=== PATIENT | female | born 1995 | race Caucasian/White ===

== ENCOUNTER 2021-10-12 12:19 | Inpatient (IN) | payer MEDICAID, OTHER ==
[~2021-10-12] VITALS: Ht 154.9 cm; Wt 46.3 kg
[2021-10-12 16:54] LABS: COVID AG,FIA SOURCE NASOPHARYNGEAL
[2021-10-12] MEDS ORDERED: LORazepam 2 MG TABLET PO PRN (17:15)
[2021-10-12] MEDS ORDERED: OLANZapine 5 MG RAPDIS TABLET PO PRN (17:15)
[2021-10-12] MEDS ORDERED: ZOLPIDEM TARTRATE 10 MG TABLET PO PRN (17:15)
[2021-10-12 20:09] VITALS: BP 121/74
[2021-10-13 04:04] VITALS: BP 120/80
[2021-10-13 08:44] VITALS: BP 105/70
[2021-10-13] MEDS ORDERED: GuaiFENesin/D-METHORPHAN [SUGAR-FREE] 200-20MG/10 ML SYRUP UDCUP PO PRN (15:45)
[2021-10-13] MEDS ORDERED: HydrOXYzine PAMOATE 50 MG CAPSULE PO PRN (15:45)
[2021-10-13] MEDS ORDERED: LOPERAMIDE HCL 2 MG CAPSULE PO PRN (15:45)
[2021-10-13] MEDS ORDERED: MAG HYDROX/AL HYDROX/SIMETH ES 30 ML SUSPENSION UDCUP PO PRN (15:45)
[2021-10-13] MEDS ORDERED: TUBERCULIN, PURIFIED PROTEIN DERIVATIVE 5 TU/0.1 ML SYRINGE ID ONE (15:45)
[2021-10-13] MEDS ORDERED: ACETAMINOPHEN 325 MG TABLET PO PRN (15:45)
[2021-10-13] MEDS ORDERED: MAGNESIUM HYDROXIDE SUSPENSION 30 ML UDCUP PO PRN (15:45)
[2021-10-13] MEDS ORDERED: PROMETHAZINE HCL 25 MG TABLET PO PRN (15:45)
[2021-10-13 16:21] VITALS: BP 105/71
[2021-10-13] MEDS: THIAMINE 100 MG TABLET PO SCH ×2 (16:45→16:56)
[2021-10-13] MEDS: MELATONIN 5 MG TABLET PO SCH (20:29)
[2021-10-13] MEDS ORDERED: OLANZapine 10 MG RAPDIS TABLET PO SCH (21:00)
[2021-10-14 01:11] VITALS: BP 90/65
[2021-10-14] MEDS: THIAMINE 100 MG TABLET PO SCH ×2 (08:25→16:19)
[2021-10-14] MEDS: NALTREXONE HCL 50 MG TABLET PO SCH (08:25)
[2021-10-14] MEDS: OMEGA-3/DHA/EPA/FISH OIL 1,000 MG CAPSULE PO SCH (08:25)
[2021-10-14] MEDS: MULTIVITAMINS WITH MINERALS, THERAPEUTIC TABLET PO SCH (08:25)
[2021-10-14] MEDS: FOLIC ACID 1 MG TABLET PO SCH (08:25)
[2021-10-14 16:00] VITALS: BP 100/63
[2021-10-14] MEDS: MELATONIN 5 MG TABLET PO SCH (20:44)
[2021-10-14] MEDS ORDERED: OLANZapine 10 MG RAPDIS TABLET PO SCH (21:00)
[2021-10-15] MEDS: OMEGA-3/DHA/EPA/FISH OIL 1,000 MG CAPSULE PO SCH (09:00)
[2021-10-15] MEDS: MULTIVITAMINS WITH MINERALS, THERAPEUTIC TABLET PO SCH (09:00)
[2021-10-15] MEDS: THIAMINE 100 MG TABLET PO SCH ×2 (09:00→16:52)
[2021-10-15] MEDS: NALTREXONE HCL 50 MG TABLET PO SCH (09:00)
[2021-10-15] MEDS: FOLIC ACID 1 MG TABLET PO SCH (09:00)
[2021-10-15 16:00] VITALS: BP 132/84
[2021-10-15] MEDS: MELATONIN 5 MG TABLET PO SCH (21:17)
[2021-10-15] MEDS: OLANZapine 10 MG RAPDIS TABLET PO SCH (21:18)
[2021-10-16 09:36] VITALS: BP 96/63
[2021-10-16] MEDS: NALTREXONE HCL 50 MG TABLET PO SCH (10:09)
[2021-10-16] MEDS: THIAMINE 100 MG TABLET PO SCH ×2 (10:09→16:05)
[2021-10-16] MEDS: MULTIVITAMINS WITH MINERALS, THERAPEUTIC TABLET PO SCH (10:09)
[2021-10-16] MEDS: FOLIC ACID 1 MG TABLET PO SCH (10:09)
[2021-10-16] MEDS: OMEGA-3/DHA/EPA/FISH OIL 1,000 MG CAPSULE PO SCH (10:09)
[2021-10-16 17:21] VITALS: BP 111/77
[2021-10-16] MEDS: MELATONIN 5 MG TABLET PO SCH (20:12)
[2021-10-16] MEDS: OLANZapine 10 MG RAPDIS TABLET PO SCH (20:12)
[2021-10-17 08:00] VITALS: BP 100/59
[2021-10-17] MEDS: MULTIVITAMINS WITH MINERALS, THERAPEUTIC TABLET PO SCH (09:00)
[2021-10-17] MEDS: NALTREXONE HCL 50 MG TABLET PO SCH (09:00)
[2021-10-17] MEDS: OMEGA-3/DHA/EPA/FISH OIL 1,000 MG CAPSULE PO SCH (09:00)
[2021-10-17] MEDS: FOLIC ACID 1 MG TABLET PO SCH (09:00)
[2021-10-17] MEDS: THIAMINE 100 MG TABLET PO SCH ×2 (09:00→17:09)
[2021-10-17 16:00] VITALS: BP 107/71
[2021-10-17] MEDS: MELATONIN 5 MG TABLET PO SCH (20:43)
[2021-10-17] MEDS: OLANZapine 10 MG RAPDIS TABLET PO SCH (20:43)
[2021-10-18 08:00] VITALS: BP 113/64
[2021-10-18] MEDS: MULTIVITAMINS WITH MINERALS, THERAPEUTIC TABLET PO SCH (09:30)
[2021-10-18] MEDS: FOLIC ACID 1 MG TABLET PO SCH (09:30)
[2021-10-18] MEDS: THIAMINE 100 MG TABLET PO SCH ×2 (09:30→16:56)
[2021-10-18] MEDS: OMEGA-3/DHA/EPA/FISH OIL 1,000 MG CAPSULE PO SCH (09:30)
[2021-10-18] MEDS: NALTREXONE HCL 50 MG TABLET PO SCH (09:30)
[2021-10-18 14:32] LABS: COVID AG,FIA SOURCE NASOPHARYNGEAL
[2021-10-18 16:34] VITALS: BP 129/73
[2021-10-18] MEDS: MELATONIN 5 MG TABLET PO SCH (20:34)
[2021-10-18] MEDS: OLANZapine 10 MG RAPDIS TABLET PO SCH (20:34)
[2021-10-19] MEDS: MULTIVITAMINS WITH MINERALS, THERAPEUTIC TABLET PO SCH (09:32)
[2021-10-19] MEDS: FOLIC ACID 1 MG TABLET PO SCH (09:33)
[2021-10-19] MEDS: THIAMINE 100 MG TABLET PO SCH ×2 (09:33→16:14)
[2021-10-19] MEDS: OMEGA-3/DHA/EPA/FISH OIL 1,000 MG CAPSULE PO SCH (09:33)
[2021-10-19] MEDS: NALTREXONE HCL 50 MG TABLET PO SCH (09:33)
[2021-10-19 10:00] VITALS: BP 110/61
[2021-10-19] MEDS ORDERED: NALT50TA PO (15:12)
[2021-10-19] MEDS ORDERED: OMEG-108 PO (15:12)
[2021-10-19] MEDS ORDERED: OLAN10TA26 PO (15:12)
[2021-10-19] MEDS ORDERED: MELA5TAB40 PO (15:12)
[2021-10-19 16:15] VITALS: BP 117/82
== END 2021-10-19 16:50 | disposition home or self-care (01) | DRG 750 ==
LOC: EMS 12:24 → 3EI 17:04
PROVIDERS: ADMIT Psychiatry & Neurology Psychiatry; ATTEND Psychiatry & Neurology Psychiatry
DX: F20.0 Paranoid schizophrenia (principal); F39 Unspecified mood [affective] disorder; F06.30 Mood disorder due to known physiological condition, unspecified; Z20.822 Contact with and (suspected) exposure to COVID-19; R41.843 Psychomotor deficit; F32.9 Major depressive disorder, single episode, unspecified; F17.200 Nicotine dependence, unspecified, uncomplicated; Z55.9 Problems related to education and literacy, unspecified; Z91.19 Patient's noncompliance with other medical treatment and regimen; Z59.9 Problem related to housing and economic circumstances, unspecified; Z63.9 Problem related to primary support group, unspecified; Z65.3 Problems related to other legal circumstances
CPT/HCPCS: 99285; Q9967

== ENCOUNTER 2021-12-28 00:47 | Inpatient (IN) | payer MEDICAID, OTHER ==
[~2021-12-28] VITALS: Ht 154.9 cm; Wt 46.7 kg
[~2021-12-28 00:47] MED LIST: MELA5TAB40 PO; NALT50TA PO; OLAN10TA26 PO; OMEG-108 PO
[2021-12-28 01:57] LABS: COVID AG,FIA SOURCE NASAL SWAB
[2021-12-28] MEDS ORDERED: LORazepam 2 MG TABLET PO ONE (02:30)
[2021-12-28] MEDS ORDERED: OLANZapine 5 MG TABLET PO ONE (02:30)
[2021-12-28] MEDS ORDERED: OLANZapine 5 MG RAPDIS TABLET PO PRN (02:30)
[2021-12-28] MEDS ORDERED: ZOLPIDEM TARTRATE 10 MG TABLET PO PRN (02:30)
[2021-12-28] MEDS ORDERED: LORazepam 2 MG TABLET PO PRN (02:30)
[2021-12-28] MEDS ORDERED: HALOPERIDOL LACTATE 5 MG/ML VIAL IM ONE (03:30)
[2021-12-28] MEDS ORDERED: DiphenhydrAMINE HCL 50 MG/ML VIAL IM ONE (03:30)
[2021-12-28] MEDS ORDERED: DIAZEPAM 5 MG/ML 2 ML SYRINGE IM ONE (03:30)
[2021-12-28 04:19] LABS: BASOPHILS % (AUTO) 0.8 % (0.0-2.0); EOSINOPHILS % (AUTO) 0 % (1.0-6.0); HEMATOCRIT 41.6 % (36-46); HEMOGLOBIN 13.9 g/dL (12.0-16.0); LYMPHOCYTES # (AUTO) 1.2 K/uL (1.0-4.8); LYMPHOCYTES % (AUTO) 17.9 % (22.0-44.0); MEAN CORPUSCULAR HEMOGLOBIN 28.2 pg (26.0-34.0); MEAN CORPUSCULAR HGB CONC 33.4 G/dL (31.0-37.0); MEAN CORPUSCULAR VOLUME 84 fL (80-100); MONOCYTES # (AUTO) 0.6 K/uL (0.1-1.0); MONOCYTES % (AUTO) 8.7 % (2.0-9.0); NEUTROPHILS % (AUTO) 72.6 % (40.0-70.0); PLATELET COUNT (AUTO) 300 K/uL (150-450); RED BLOOD CELL COUNT(AUTO) 4.93 MIL/uL (4.00-5.20); RED CELL DISTRIBUTION WIDTH 13.7 % (11.5-14.5)
[2021-12-28 04:28] LABS: ANION GAP 13 mmol/L (8-16); CALCIUM, TOTAL 9.5 mg/dL (8.8-10.5); CARBON DIOXIDE 25 mmol/L (22-29); CHLORIDE 104 mmol/L (98-107); CREATININE 0.77 mg/dL (0.60-1.30); GLUCOSE,RANDOM 112 mg/dL (70-110); POTASSIUM 3.6 mmol/L (3.5-5.1); SODIUM SERUM 142 mmol/L (136-145); UREA NITROGEN, BLOOD 19 mg/dL (7-18)
[2021-12-28 04:29] LABS: GLOMERULAR FILTR. RATE CALC > 60 mL/min (>60)
[2021-12-28 04:34] LABS: ALANINE AMINOTRANSFERASE 26 U/L (12-78); ALBUMIN 4.7 g/dL (3.4-5.0); ALKALINE PHOSPHATASE 64 U/L (46-116); ASPARTATE AMINOTRANSFERASE 23 U/L (15-37); BILIRUBIN,TOTAL 0.6 mg/dL (0.1-1.0); TOTAL PROTEIN, SERUM 8.3 g/dL (6.4-8.2)
[2021-12-28 04:46] VITALS: BP 107/69
[2021-12-28 08:00] VITALS: BP 104/74
[2021-12-28] MEDS ORDERED: GuaiFENesin/D-METHORPHAN [SUGAR-FREE] 200-20MG/10 ML SYRUP UDCUP PO PRN (09:30)
[2021-12-28] MEDS ORDERED: LOPERAMIDE HCL 2 MG CAPSULE PO PRN (09:30)
[2021-12-28] MEDS ORDERED: CloNIDine HCL 0.1 MG TABLET PO PRN (09:30)
[2021-12-28] MEDS ORDERED: DOCUSATE SODIUM 100 MG CAPSULE PO PRN (09:30)
[2021-12-28] MEDS ORDERED: MAGNESIUM HYDROXIDE SUSPENSION 30 ML UDCUP PO PRN (09:30)
[2021-12-28] MEDS ORDERED: ONDANSETRON HCL 4 MG TABLET PO PRN (09:30)
[2021-12-28] MEDS ORDERED: PETROLATUM,WHITE 28 GM JELLY TP PRN (09:30)
[2021-12-28] MEDS ORDERED: ALBUTEROL SULFATE HFA 90 MCG/PUFF 8 GM INHALER IH PRN (09:30)
[2021-12-28] MEDS ORDERED: ACETAMINOPHEN 325 MG TABLET PO PRN (09:30)
[2021-12-28] MEDS ORDERED: MAG HYDROX/AL HYDROX/SIMETH ES 30 ML SUSPENSION UDCUP PO PRN (09:30)
[2021-12-28] MEDS ORDERED: NICOTINE 14 MG/24 HOUR PATCH TD PRN (09:30)
[2021-12-28] MEDS ORDERED: IBUPROFEN 400 MG TABLET PO PRN (09:30)
[2021-12-28] MEDS: OLANZapine 10 MG TABLET PO SCH ×2 (13:47→20:21)
[2021-12-28 16:00] VITALS: BP 141/87
[2021-12-28] MEDS: MELATONIN 5 MG TABLET PO SCH (20:21)
[2021-12-29 06:31] LABS: MAGNESIUM 2.3 mg/dL (1.80-2.40); PHOSPHORUS 5.1 mg/dL (2.5-4.9)
[2021-12-29 08:00] VITALS: BP 118/72
[2021-12-29] MEDS: OMEGA-3/DHA/EPA/FISH OIL 1,000 MG CAPSULE PO SCH (08:39)
[2021-12-29] MEDS: MULTIVITAMINS, THERAPEUTIC TABLET PO SCH (08:39)
[2021-12-29] MEDS: OLANZapine 10 MG TABLET PO SCH ×2 (08:39→21:15)
[2021-12-29] MEDS: THIAMINE 100 MG TABLET PO SCH (08:39)
[2021-12-29 16:00] VITALS: BP 93/54
[2021-12-29] MEDS: MELATONIN 5 MG TABLET PO SCH (21:05)
[2021-12-30] MEDS: OLANZapine 10 MG TABLET PO SCH ×2 (09:03→20:19)
[2021-12-30] MEDS: MULTIVITAMINS, THERAPEUTIC TABLET PO SCH (09:03)
[2021-12-30] MEDS: THIAMINE 100 MG TABLET PO SCH (09:03)
[2021-12-30] MEDS: OMEGA-3/DHA/EPA/FISH OIL 1,000 MG CAPSULE PO SCH (09:03)
[2021-12-30 09:04] VITALS: BP 90/60
[2021-12-30 16:38] VITALS: BP 108/63
[2021-12-30] MEDS: MELATONIN 5 MG TABLET PO SCH (20:19)
[2021-12-31 08:00] VITALS: BP 112/80
[2021-12-31 08:27] VITALS: BP 112/80
[2021-12-31] MEDS: MULTIVITAMINS, THERAPEUTIC TABLET PO SCH (08:32)
[2021-12-31] MEDS: OMEGA-3/DHA/EPA/FISH OIL 1,000 MG CAPSULE PO SCH (08:32)
[2021-12-31] MEDS: OLANZapine 10 MG TABLET PO SCH ×2 (08:32→20:21)
[2021-12-31] MEDS: THIAMINE 100 MG TABLET PO SCH (08:32)
[2021-12-31 16:33] VITALS: BP 104/61
[2021-12-31] MEDS: MELATONIN 5 MG TABLET PO SCH (20:21)
[2022-01-01] MEDS: THIAMINE 100 MG TABLET PO SCH (08:53)
[2022-01-01] MEDS: OLANZapine 10 MG TABLET PO SCH ×2 (08:53→20:47)
[2022-01-01] MEDS: MULTIVITAMINS, THERAPEUTIC TABLET PO SCH (08:53)
[2022-01-01] MEDS: OMEGA-3/DHA/EPA/FISH OIL 1,000 MG CAPSULE PO SCH (08:53)
[2022-01-01 09:01] VITALS: BP 113/71
[2022-01-01 16:43] VITALS: BP 99/69
[2022-01-01] MEDS: MELATONIN 5 MG TABLET PO SCH (20:47)
[2022-01-02 08:34] VITALS: BP 102/65
[2022-01-02] MEDS: OMEGA-3/DHA/EPA/FISH OIL 1,000 MG CAPSULE PO SCH (08:55)
[2022-01-02] MEDS: MULTIVITAMINS, THERAPEUTIC TABLET PO SCH (08:56)
[2022-01-02] MEDS: THIAMINE 100 MG TABLET PO SCH (08:56)
[2022-01-02] MEDS: MEGESTROL ACETATE 40 MG TABLET PO SCH ×2 (08:56→17:11)
[2022-01-02] MEDS: OLANZapine 10 MG TABLET PO SCH ×2 (08:56→21:39)
[2022-01-02 16:00] VITALS: BP 92/58
[2022-01-02] MEDS: MELATONIN 5 MG TABLET PO SCH (21:39)
[2022-01-03 06:44] LABS: COVID AG,FIA SOURCE NASAL SWAB
[2022-01-03 09:31] VITALS: BP 99/62
[2022-01-03] MEDS: MULTIVITAMINS, THERAPEUTIC TABLET PO SCH (10:19)
[2022-01-03] MEDS: THIAMINE 100 MG TABLET PO SCH (10:19)
[2022-01-03] MEDS: OLANZapine 10 MG TABLET PO SCH ×2 (10:19→20:17)
[2022-01-03] MEDS: OMEGA-3/DHA/EPA/FISH OIL 1,000 MG CAPSULE PO SCH (10:19)
[2022-01-03] MEDS: MEGESTROL ACETATE 40 MG TABLET PO SCH ×2 (10:21→16:55)
[2022-01-03 16:25] VITALS: BP 108/69
[2022-01-03] MEDS: MELATONIN 5 MG TABLET PO SCH (20:17)
[2022-01-03 20:52] VITALS: BP 145/55
[2022-01-04] MEDS: OMEGA-3/DHA/EPA/FISH OIL 1,000 MG CAPSULE PO SCH (08:12)
[2022-01-04] MEDS: OLANZapine 10 MG TABLET PO SCH ×2 (08:12→20:58)
[2022-01-04] MEDS: MEGESTROL ACETATE 40 MG TABLET PO SCH ×2 (08:12→16:22)
[2022-01-04] MEDS: MULTIVITAMINS, THERAPEUTIC TABLET PO SCH (08:13)
[2022-01-04] MEDS: THIAMINE 100 MG TABLET PO SCH (08:13)
[2022-01-04 08:29] VITALS: BP 92/62
[2022-01-04] MEDS: VALPROIC ACID 250 MG/5 ML SOLUTION UDCUP PO SCH ×2 (14:12→20:58)
[2022-01-04 16:03] VITALS: BP 94/60
[2022-01-04] MEDS: MELATONIN 5 MG TABLET PO SCH (20:58)
[2022-01-05 08:00] VITALS: BP 95/53
[2022-01-05] MEDS: OLANZapine 10 MG TABLET PO SCH ×2 (09:04→20:00)
[2022-01-05] MEDS: MULTIVITAMINS, THERAPEUTIC TABLET PO SCH (09:04)
[2022-01-05] MEDS: MEGESTROL ACETATE 40 MG TABLET PO SCH ×2 (09:04→16:23)
[2022-01-05] MEDS: THIAMINE 100 MG TABLET PO SCH (09:04)
[2022-01-05] MEDS: OMEGA-3/DHA/EPA/FISH OIL 1,000 MG CAPSULE PO SCH (09:05)
[2022-01-05] MEDS: VALPROIC ACID 250 MG/5 ML SOLUTION UDCUP PO SCH ×2 (09:05→20:00)
[2022-01-05 16:00] VITALS: BP 92/57
[2022-01-05] MEDS: MELATONIN 5 MG TABLET PO SCH (20:00)
[2022-01-06 06:19] VITALS: BP 96/60
[2022-01-06] MEDS: OMEGA-3/DHA/EPA/FISH OIL 1,000 MG CAPSULE PO SCH (09:24)
[2022-01-06] MEDS: OLANZapine 10 MG TABLET PO SCH ×2 (09:24→20:39)
[2022-01-06] MEDS: MULTIVITAMINS, THERAPEUTIC TABLET PO SCH (09:24)
[2022-01-06] MEDS: THIAMINE 100 MG TABLET PO SCH (09:25)
[2022-01-06] MEDS: VALPROIC ACID 250 MG/5 ML SOLUTION UDCUP PO SCH ×2 (09:25→20:39)
[2022-01-06] MEDS: MEGESTROL ACETATE 40 MG TABLET PO SCH ×2 (09:25→17:50)
[2022-01-06 09:43] VITALS: BP 90/61
[2022-01-06 16:06] VITALS: BP 114/71
[2022-01-06] MEDS: MELATONIN 5 MG TABLET PO SCH (20:39)
[2022-01-07] MEDS: THIAMINE 100 MG TABLET PO SCH (09:02)
[2022-01-07] MEDS: OMEGA-3/DHA/EPA/FISH OIL 1,000 MG CAPSULE PO SCH (09:02)
[2022-01-07] MEDS: OLANZapine 10 MG TABLET PO SCH ×2 (09:02→20:15)
[2022-01-07] MEDS: MULTIVITAMINS, THERAPEUTIC TABLET PO SCH (09:02)
[2022-01-07] MEDS: VALPROIC ACID 250 MG/5 ML SOLUTION UDCUP PO SCH ×2 (09:02→20:11)
[2022-01-07] MEDS: MEGESTROL ACETATE 40 MG TABLET PO SCH ×2 (09:02→16:01)
[2022-01-07 09:16] VITALS: BP 90/66
[2022-01-07 16:00] VITALS: BP 99/67
[2022-01-07] MEDS: MELATONIN 5 MG TABLET PO SCH (20:11)
[2022-01-08 08:30] VITALS: BP 96/63
[2022-01-08] MEDS: VALPROIC ACID 250 MG/5 ML SOLUTION UDCUP PO SCH ×2 (09:04→20:12)
[2022-01-08] MEDS: OMEGA-3/DHA/EPA/FISH OIL 1,000 MG CAPSULE PO SCH (09:04)
[2022-01-08] MEDS: MEGESTROL ACETATE 40 MG TABLET PO SCH ×2 (09:05→16:14)
[2022-01-08] MEDS: OLANZapine 10 MG TABLET PO SCH ×2 (09:05→20:12)
[2022-01-08] MEDS: THIAMINE 100 MG TABLET PO SCH (09:05)
[2022-01-08] MEDS: MULTIVITAMINS, THERAPEUTIC TABLET PO SCH (09:05)
[2022-01-08 13:25] LABS: CHOL/HDL RATIO 3.7 (3.9-5.7)
[2022-01-08 16:56] VITALS: BP 115/75
[2022-01-08] MEDS: MELATONIN 5 MG TABLET PO SCH (20:12)
[2022-01-09] MEDS: OLANZapine 10 MG TABLET PO SCH ×2 (08:16→20:50)
[2022-01-09] MEDS: MULTIVITAMINS, THERAPEUTIC TABLET PO SCH (08:16)
[2022-01-09] MEDS: OMEGA-3/DHA/EPA/FISH OIL 1,000 MG CAPSULE PO SCH (08:16)
[2022-01-09] MEDS: THIAMINE 100 MG TABLET PO SCH (08:16)
[2022-01-09] MEDS: MEGESTROL ACETATE 40 MG TABLET PO SCH ×2 (08:16→16:32)
[2022-01-09] MEDS: VALPROIC ACID 250 MG/5 ML SOLUTION UDCUP PO SCH ×2 (08:16→20:51)
[2022-01-09 08:59] VITALS: BP 91/60
[2022-01-09 16:22] VITALS: BP 99/70
[2022-01-09] MEDS: MELATONIN 5 MG TABLET PO SCH (20:50)
[2022-01-10 06:07] LABS: COVID AG,FIA SOURCE NASAL SWAB
[2022-01-10] MEDS: OMEGA-3/DHA/EPA/FISH OIL 1,000 MG CAPSULE PO SCH (08:48)
[2022-01-10] MEDS: MEGESTROL ACETATE 40 MG TABLET PO SCH ×2 (08:48→16:25)
[2022-01-10] MEDS: MULTIVITAMINS, THERAPEUTIC TABLET PO SCH (08:48)
[2022-01-10] MEDS: OLANZapine 10 MG TABLET PO SCH ×2 (08:48→20:03)
[2022-01-10] MEDS: VALPROIC ACID 250 MG/5 ML SOLUTION UDCUP PO SCH ×2 (08:49→20:03)
[2022-01-10] MEDS: THIAMINE 100 MG TABLET PO SCH (08:49)
[2022-01-10 09:20] VITALS: BP 103/60
[2022-01-10 16:26] VITALS: BP 90/61
[2022-01-10] MEDS: MELATONIN 5 MG TABLET PO SCH (20:03)
[2022-01-11] MEDS: THIAMINE 100 MG TABLET PO SCH (08:38)
[2022-01-11] MEDS: OLANZapine 10 MG TABLET PO SCH ×2 (08:38→20:39)
[2022-01-11] MEDS: VALPROIC ACID 250 MG/5 ML SOLUTION UDCUP PO SCH ×2 (08:38→20:39)
[2022-01-11] MEDS: MEGESTROL ACETATE 40 MG TABLET PO SCH ×2 (08:38→16:33)
[2022-01-11] MEDS: OMEGA-3/DHA/EPA/FISH OIL 1,000 MG CAPSULE PO SCH (08:38)
[2022-01-11] MEDS: MULTIVITAMINS, THERAPEUTIC TABLET PO SCH (08:38)
[2022-01-11 09:49] VITALS: BP 112/71
[2022-01-11 16:16] VITALS: BP 102/64
[2022-01-11] MEDS: MELATONIN 5 MG TABLET PO SCH (20:40)
[2022-01-12 08:10] VITALS: BP 105/66
[2022-01-12] MEDS: VALPROIC ACID 250 MG/5 ML SOLUTION UDCUP PO SCH ×2 (09:05→21:01)
[2022-01-12] MEDS: OMEGA-3/DHA/EPA/FISH OIL 1,000 MG CAPSULE PO SCH (09:06)
[2022-01-12] MEDS: THIAMINE 100 MG TABLET PO SCH (09:06)
[2022-01-12] MEDS: OLANZapine 10 MG TABLET PO SCH ×2 (09:06→21:01)
[2022-01-12] MEDS: MULTIVITAMINS, THERAPEUTIC TABLET PO SCH (09:06)
[2022-01-12] MEDS: MEGESTROL ACETATE 40 MG TABLET PO SCH ×2 (09:08→16:54)
[2022-01-12 16:47] VITALS: BP 103/65
[2022-01-12] MEDS: MELATONIN 5 MG TABLET PO SCH (21:01)
[2022-01-13] MEDS: MEGESTROL ACETATE 40 MG TABLET PO SCH ×2 (08:23→16:41)
[2022-01-13] MEDS: MULTIVITAMINS, THERAPEUTIC TABLET PO SCH (08:24)
[2022-01-13] MEDS: OLANZapine 10 MG TABLET PO SCH ×2 (08:24→20:51)
[2022-01-13] MEDS: THIAMINE 100 MG TABLET PO SCH (08:24)
[2022-01-13] MEDS: OMEGA-3/DHA/EPA/FISH OIL 1,000 MG CAPSULE PO SCH (08:24)
[2022-01-13] MEDS: VALPROIC ACID 250 MG/5 ML SOLUTION UDCUP PO SCH ×2 (08:25→20:51)
[2022-01-13 09:32] VITALS: BP 106/61
[2022-01-13 16:28] VITALS: BP 105/67
[2022-01-13] MEDS: MELATONIN 5 MG TABLET PO SCH (20:51)
[2022-01-14 08:00] VITALS: BP 120/70
[2022-01-14] MEDS: OLANZapine 10 MG TABLET PO SCH (08:43)
[2022-01-14] MEDS: VALPROIC ACID 250 MG/5 ML SOLUTION UDCUP PO SCH (08:43)
[2022-01-14] MEDS: OMEGA-3/DHA/EPA/FISH OIL 1,000 MG CAPSULE PO SCH (08:43)
[2022-01-14] MEDS: MEGESTROL ACETATE 40 MG TABLET PO SCH (08:43)
[2022-01-14] MEDS: THIAMINE 100 MG TABLET PO SCH (08:43)
[2022-01-14] MEDS: MULTIVITAMINS, THERAPEUTIC TABLET PO SCH (08:43)
[2022-01-14] MEDS ORDERED: MELA5TAB40 PO (09:18)
[2022-01-14] MEDS ORDERED: OLAN10 PO (09:18)
[2022-01-14] MEDS ORDERED: VALP250S23 PO (09:18)
== END 2022-01-14 11:15 | disposition home or self-care (01) | DRG 750 ==
LOC: EMS 00:51 → 3EI 02:45
PROVIDERS: ADMIT Psychiatry & Neurology Psychiatry; ATTEND Psychiatry & Neurology Psychiatry
DX: F25.1 Schizoaffective disorder, depressive type (principal); R45.851 Suicidal ideations; Z91.19 Patient's noncompliance with other medical treatment and regimen; E78.5 Hyperlipidemia, unspecified; F94.0 Selective mutism; G47.00 Insomnia, unspecified; F99 Mental disorder, not otherwise specified; R73.9 Hyperglycemia, unspecified; Z79.899 Other long term (current) drug therapy
CPT/HCPCS: 80053; 80061; 80164; 83036; 83735; 84100; 84703; 85025; 99285; G0480; J1200; J1630; Q9967